=== PATIENT | female | born 1965 | race Caucasian/White ===

== ENCOUNTER 2024-09-28 14:34 | Emergency (ER) | payer SELFPAY ==
[2024-09-28] MEDS ORDERED: Lidocaine 1% (PF) 30 ML VIAL ONE (15:49)
== END 2024-09-28 16:35 | disposition home or self-care (01) ==
LOC: NAV ERS 14:34
DX: S61.215A Laceration without foreign body of left ring finger without damage to nail, initial encounter (principal); I10 Essential (primary) hypertension; W26.9XXA Contact with unspecified sharp object(s), initial encounter; Z79.899 Other long term (current) drug therapy
CPT/HCPCS: 12001; 99282